=== PATIENT | female | born 1980 | race Caucasian/White ===

== ENCOUNTER → 2025-03-21 10:01 | Outpatient (REF) | payer OTHER, SELFPAY | LOC: HWRAD 10:01 | PROVIDERS: ATTENDING PHYSICIAN Physician Assistant Medical | DX: R07.89 Other chest pain (principal); R05.3 Chronic cough; R91.8 Other nonspecific abnormal finding of lung field; F17.200 Nicotine dependence, unspecified, uncomplicated | CPT/HCPCS: 71250 ==

== ENCOUNTER 2025-03-23 10:56 | Emergency (ER) | payer OTHER, SELFPAY ==
[2025-03-23 11:01] VITALS: BP 121/68
[2025-03-23 11:58] VITALS: BMI 23.3
[2025-03-23 12:02] VITALS: BP 112/73
[2025-03-23 12:22] LABS: Hematocrit 37.2 % (37.0-47.0); Hemoglobin 13.5 g/dL (12.0-16.0); Mean Corp Hgb Conc. 36.3 g/dL (33.0-37.0); Mean Corpuscular Volume 89.2 fL (81.0-99.0); Nucleated Red Blood Cells % 0 %; Platelet Count 324 10^3/uL (130-400); Red Cell Dist. Width 11.3 % (11.5-14.5)
[2025-03-23 12:45] LABS: ALT (SGPT) 20 U/L (0-35); AST (SGOT) 23 U/L (14-36); Albumin 4.8 g/dl (3.5-5.0); Alkaline Phosphatase 62 U/L (38-126); Blood Urea Nitrogen 8 mg/dl (7-17); Calcium 9.9 mg/dl (8.4-10.2); Carbon Dioxide 18 mmol/L (22-30); Chloride 109 mmol/L (98-107); Estimated Creatinine Clearance 110 ml/min; Glucose 86 mg/dl (70-99); Potassium 3.9 mmol/L (3.5-5.1); Sodium 137 mmol/L (135-145); Total Protein 7.4 g/dl (6.3-8.2); eGFR > 60.00
--- NOTE | 2025-03-23 12:56 | ED.GENMED ---
History of Present Illness
General
Chief Complaint: Dizziness
Source: patient
Exam Limitations: none
Time Seen by Provider: 03/23/25 11:47
Nursing documentation reviewed up to this point in time: agreed with
History of Present Illness
History of Present Illness:
44-year-old female with a past medical history as documented who presents to the ER for evaluation of chest pain. Patient reports that she was driving to work this morning when she started to have some pain in the left side of her chest which she
describes as a pressure sensation that radiated towards her left shoulder and left side of her neck. She reports that she went to work but while at work she noticed she was started to feel more short of breath and ultimately drove herself to the
emergency room to be evaluated. She says that symptoms have improved but not completely resolved by the time of ER arrival. She said she had some mild associated lightheadedness. She denies any nausea, vomiting, diaphoresis. Denies abdominal
pain. She denies any recent fevers or coughs. She denies any other acute complaints. She says she does have a history of panic attacks but they typically do not feel like this. She denies any history of heart issues, does have a family history
of heart attack in her grandmother at 55. She is a smoker, denies alcohol or drug use.
Past History
Past History
ED Past Medical History: Arrthythmia and Psychiatric
Social History
Tobacco: Smoker
Review of Systems
Review of Systems
All Other Systems: ROS reviewed and negative except as documented in HPI and ROS
Constitutional: Denies fever or chills
Respiratory: Reports trouble breathing; Denies cough
Cardiac: Reports chest pain; Denies palpitations
ABD/GI: Denies abdominal pain, nausea, vomiting or diarrhea
: Denies flank pain
Musculoskeletal: Denies edema, neck pain or back pain
Neurological: Denies dizzy or headache
Phy Exam
Physical Exam
Physical Exam:
General: Awake, alert, oriented x3; no acute distress
Head: Normocephalic, atraumatic
Eyes: Conjunctiva normal, sclera anicteric
Throat: Airway intact, handling secretions
Neck: Trachea midline, supple without meningismus
Lungs: Clear to auscultation bilaterally, no wheezing, rales, rhonchi
Heart: Regular rate and rhythm, no murmurs, gallops, or rubs
Abd: Soft, non distended, nontender
Neuro: No gross deficits
Skin: no rash in area of concern
Extremities: No edema in extremities, no calf tenderness, equal pulses in all extremities
Scores
Heart Failure Risk
Heart Failure Risk Score: Not Applicable
Heart Score for Chest Pain Patients
STEMI patient?: No
History: Slightly or Non-Suspicious
ECG: Normal
Age: </= 45 years
Risk Factors: 1 or 2 Risk Factors
Troponin: </= Normal Limit
Heart Score for Chest Pain Patients: 1
Heart Score Risk: 2.5% MACE over next 6 weeks
Withdrawal Assessment of Alcohol
Withdrawal Assessment Completed?: Not applicable
Course
Orders/Labs/Results
Orders:
Orders
03/23/25 10:57
EKG [Electrocardiogram (*1)] Urgent
Reason for Study: Chest Pain
03/23/25 10:58
EKG- Treatment ONCE
03/23/25 12:14
Complete Blood Count/With Diff Urgent
Comprehensive Metabolic Panel Urgent
Troponin I Urgent
03/23/25 13:56
CR Chest - 2 Views Urgent
Comment:
Reason For Exam: cp, sob
03/23/25 14:40
D-Dimer Urgent
Troponin I Urgent
Abnormal Lab Results
03/23/25
12:14
RBC 4.17 L 10^6/uL
(4.20-5.40)
MCH 32.4 H pg
(27.0-31.0)
RDW 11.3 L %
(11.5-14.5)
Chloride 109 H mmol/L
(98-107)
Carbon Dioxide 18 L mmol/L
(22-30)
Creatinine 0.4 L mg/dL
(0.6-1.0)
03/23/25 12:14
03/23/25 12:14
Vital Signs
Initial and Last Documented VS:
Initial Vital Signs
Temp Pulse Resp BP Pulse Ox
36.7 C 79 16 121/68 98
03/23/25 11:01 03/23/25 11:01 03/23/25 11:01 03/23/25 11:01 03/23/25 11:01
Last Documented Vital Signs
Temp Pulse Resp BP Pulse Ox
36.7 C 76 15 112/73 99
03/23/25 11:01 03/23/25 12:02 03/23/25 12:02 03/23/25 12:02 03/23/25 12:56
MDM/Problems Addressed
Differential Diagnosis Includes:
GERD, costochondritis, pneumothorax, pneumonia, ACS/angina, PE, anxiety/panic attack
MDM/Problems Addressed:
44-year-old female presents after an episode of chest pain associated with lightheadedness and shortness of breath. Symptoms have improved by ER arrival although still has some mild residual discomfort. Vital signs are normal. Physical exam as
above. EKG shows normal sinus rhythm with no acute ischemic changes. Labs sent off including a CBC and a CMP which showed no clinically significant abnormalities. Initial troponin undetectable. Will add chest x-ray, D-dimer, repeat troponin.
Reassess after the above.
Repeat troponin undetectable, D-dimer negative. Chest x-ray reviewed by me shows no acute disease. Low suspicion for emergent pathology certain by history this sounds like panic attack. Vital signs have been stable; in my judgment she can be
discharged to follow-up with her primary care physician. Patient comfortable with this plan. All questions answered.
Chronic conditions affecting care:
Smoker
*Radiology
Radiology exam reviewed: preliminary read by ED provider and radiology read reviewed
*Pulse Oximetry
SaO2: 99
Oxygen Mode of Delivery: Room air
Patient hypoxic: no (99%)
*EKG
Interpreted by ED Provider?: Yes
Heart Rate: 75
Rate: normal
Rhythm: sinus
[place]: normal axis
Interval: normal interval
QRS Pattern: normal QRS
Ischemia: no ischemia
*Critical Care Note
Total Time (30-74mins, 75-104mins- exclusive of procedures): Not Applicable
Data Reviewed
Review of Other/Old Records Reveals: Records
Source: patient
ED Attending Note
-
Portions of this chart may have been created with voice recognition software.� Occasional wrong word or��sound alike� substitutions may have occurred due to the inherent limitations of voice recognition software.
Discharge Plan
Departure
Patient Disposition: Home (Routine Discharge)
Date of Disposition: 03/23/25
Time of Disposition: 15:32
Patient with high blood pressure during this ER visit?: No
Discharge Problem:
Chest pain
Instructions: Chest Pain PCP Follow Up
Prescriptions:
No Action
Albuterol Sulfate Hfa
1 puff inhalation PRN PRN (Reason: SOB)
multivitamin 1 EACH tablet
1 ea PO DAILY
alprazolam 1 MG tablet
2 mg PO TID
calcium carbonate 600 MG tablet
600 mg PO DAILY
bupropion HCl 300 MG tablet extended release 24 hr
300 mg PO DAILY
budesonide-formoterol [Symbicort] 1 PUFF HFA aerosol inhaler
2 puff inhalation R BID PRN (Reason: SOB)
Paxil:
40 mg PO DAILY
docusate sodium 100 MG capsule
100 mg PO BIDPRN PRN (Reason: Constipation) Qty: 30 0RF
ibuprofen 600 MG tablet
600 mg PO Q4HPRN PRN (Reason: mild cramps) Qty: 30 0RF
simethicone [Gas Relief 80 (simethicone)] 80 MG tablet,chewable
80 mg PO Q6HPRN PRN (Reason: gas distention) Qty: 30 0RF
oxycodone 5 MG tablet
5 mg PO Q4HPRN PRN (Reason: moderate pain) Qty: 18 0RF
oxycodone 10 MG tablet
10 mg PO Q4HPRN PRN (Reason: severe pain when tolerating PO) Qty: 0 0RF
Referrals:
Patricia Santillan PA-C [Family Provider, Family Practice] - Call in 1-3 days for appt
Activity Restrictions/Additional Instructions:
Thank you for visiting the Emergency Department at [facility].
1. Please schedule a follow up appointment as directed. Call first thing tomorrow morning to make an appointment.
2. If indicated, please take your medications as instructed and indicated on discharge paperwork.
3. If any of your symptoms do not improve, or persist, or become more severe within 6-12 hours, please return to the emergency department for further care.
4. Please return to the emergency department if you develop a headache, neck pain/stiffness, fever greater than 100.4F, chest pain, shortness of breath, persistent nausea, vomiting, slurred speech, difficulty walking, numbness/tingling, weakness,
signs of infection or any other symptoms that are worrisome to you.
Please call [phone] if you have any questions.
Interventions
Interventions:
*Risk Screen - Suicide Last Done: 03/23/25 11:01
*General Assessment Last Done: 03/23/25 11:58
*Neglect/Abuse Screening Last Done: 03/23/25 11:01
*ED- Fall Risk Assessment Last Done: 03/23/25 11:58
*ED COVID-19 Vaccine History Last Done: 03/23/25 11:58
Discharge Date and Time
Print Language: NEPALESE
[2025-03-23 13:12] LABS: Troponin I < 0.012 ng/ml
[2025-03-23 13:15] VITALS: BP 106/74
[2025-03-23 14:00] VITALS: BP 108/72
[2025-03-23 15:07] LABS: D-Dimer 0.28 ug/mlFEU (0.00-0.50)
[2025-03-23 15:20] LABS: Troponin I < 0.012 ng/ml
== END 2025-03-23 15:35 | disposition home or self-care (01) ==
LOC: EMR 10:56
PROVIDERS: EMERGENCY PHYSICIAN Emergency Medicine; FAMILY PHYSICIAN Physician Assistant Medical
DX: R07.9 Chest pain, unspecified (principal); R42 Dizziness and giddiness; F17.200 Nicotine dependence, unspecified, uncomplicated
CPT/HCPCS: 99285; 71046; 80053; 84484; 85025; 85379; 93005

== ENCOUNTER → 2025-03-31 14:52 | Outpatient (REF) | payer OTHER, SELFPAY | LOC: HWRAD 14:52 | PROVIDERS: ATTENDING PHYSICIAN Physician Assistant Medical | DX: E04.1 Nontoxic single thyroid nodule (principal) | CPT/HCPCS: 76536 ==

== ENCOUNTER → 2025-07-02 06:58 | Outpatient (REF) | payer OTHER, SELFPAY | LOC: RAD 06:58 | PROVIDERS: ATTENDING PHYSICIAN Nurse Practitioner Family; FAMILY PHYSICIAN Family Medicine | DX: E04.1 Nontoxic single thyroid nodule (principal); R94.6 Abnormal results of thyroid function studies | CPT/HCPCS: 78014; A9516 ==